=== PATIENT | female | born 1970 ===

== ENCOUNTER → 2017-05-27 | Outpatient (REF) ==
[2017-05-28 10:29] LABS: THYROID STIMULATING HORMONE 4.54 uIU/mL (0.465-4.680)
== END ==
LOC: ZLAB.WCH 18:50
PROVIDERS: Family Medicine
DX: Z01.89 Encounter for other specified special examinations (principal)

== ENCOUNTER → 2017-09-15 | Outpatient (REF) ==
[2017-09-15 19:11] LABS: THYROID STIMULATING HORMONE 4.2 uIU/mL (0.465-4.680)
== END ==
LOC: ZLAB.WCH 18:30
PROVIDERS: Family Medicine
DX: Z01.89 Encounter for other specified special examinations (principal)